=== PATIENT | male | born 1970 | race Hispanic/Latino ===

== ENCOUNTER 2018-07-09 19:08 | Emergency (ER) | payer SELFPAY ==
--- NOTE | 2018-07-09 19:35 | EDPHYS ---
Physician Documentation [facility] Name: Pramod Hess Age: 48 yrs Sex: Male : 1970 Arrival Date: 07/09/2018 Time: 19:14 Bed 25 Private MD: ED Physician Amanuel Quezada HPI: 07/09 19:27 This 48 yrs old Male presents to ER via Unassigned with complaints of Abscess kb - neck. 19:27 The patient presents with an abscess of the left base of the skull. Description: kb erythematous, swollen. Onset: The symptoms/episode began/occurred 1 week(s) ago. Possible cause(s): unknown. Associated signs and symptoms: Pertinent positives: erythema, swelling, Pertinent negatives: discharge, drainage, foreign body sensation, fever, headache, nausea, shortness of breath, vomiting. Modifying factors: the symptoms are alleviated by nothing, the symptoms are aggravated by pressure, touching. Severity of symptoms: At their worst the symptoms were mild, in the emergency department the symptoms are unchanged. The patient has not experienced similar symptoms in the past. The patient has not recently seen a physician. Pt reports he developed a lump on the back of his neck that has gotten bigger and red. Tried to pop it so it is open now, but no drainage. Denies fever. . Historical: - Allergies: 19:31 No Known Allergies; ea - Home Meds: 19:31 None [Active]; ea - PMHx: 19:31 None; ea - PSHx: 19:31 None; ea - Immunization history:: Adult Immunizations up to date. - Social history:: Smoking status: Patient uses tobacco products. - Ebola Screening: : No symptoms or risks identified at this time. ROS: 19:27 Constitutional: Negative for fever, chills, and weight loss, Cardiovascular: Negative kb for chest pain, palpitations, and edema, Respiratory: Negative for shortness of breath, cough, wheezing, and pleuritic chest pain, Abdomen/GI: Negative for abdominal pain, nausea, vomiting, diarrhea, and constipation, MS/Extremity: Negative for injury and deformity, Neuro: Negative for headache, weakness, numbness, tingling, and seizure. 19:27 Skin: Positive for abscess, erythema, swelling, of the left base of the skull. Exam: 19:27 Constitutional: This is a well developed, well nourished patient who is awake, alert, kb and in no acute distress. Head/Face: Normocephalic, atraumatic. Chest/axilla: Normal chest wall appearance and motion. Nontender with no deformity. No lesions are appreciated. Cardiovascular: Regular rate and rhythm with a normal S1 and S2. No gallops, murmurs, or rubs. Normal PMI, no JVD. No pulse deficits. Respiratory: Lungs have equal breath sounds bilaterally, clear to auscultation and percussion. No rales, rhonchi or wheezes noted. No increased work of breathing, no retractions or nasal flaring. Abdomen/GI: Soft, non-tender, with normal bowel sounds. No distension or tympany. No guarding or rebound. No evidence of tenderness throughout. MS/ Extremity: Pulses equal, no cyanosis. Neurovascular intact. Full, normal range of motion. Neuro: Awake and alert, GCS 15, oriented to person, place, time, and situation. Cranial nerves II-XII grossly intact. Motor strength 5/5 in all extremities. Sensory grossly intact. Cerebellar exam normal. Normal gait. 19:27 Skin: abscess, that is small, that is moderate sized, of the left base of the skull, with induration. Vital Signs: 19:30 BP 163 / 93; Pulse 85; Resp 18; Temp 98.3; Pulse Ox 99% on R/A; Weight 68.04 kg; Height ea 5 ft. 6 in. (167.64 cm); Pain 8/10; 19:30 Body Mass Index 24.21 (68.04 kg, 167.64 cm) ea MDM: 19:24 Patient medically screened. kb 19:27 Data interpreted: Pulse oximetry: on room air is 100 %. Interpretation: normal. kb 19:27 Data reviewed: vital signs, nurses notes. kb 19:27 Counseling: I had a detailed discussion with the patient and/or guardian regarding: the kb historical points, exam findings, and any diagnostic results supporting the discharge/admit diagnosis, the need for outpatient follow up, a family practitioner, to return to the emergency department if symptoms worsen or persist or if there are any questions or concerns that arise at home. Administered Medications: 19:45 Drug: Bactrim (160 mg-800 mg (DS) 1 tablet Route: PO; rr5 19:55 Follow up: Response: Medication administered at discharge. rr5 Disposition: 21:11 Co-signature as Attending Physician, Amanuel Quezada MD. russell Disposition: 07/09/18 19:34 Discharged to Home. Impression: Cutaneous abscess of neck. - Condition is Stable. - Discharge Instructions: Skin Abscess, [id number]. - Prescriptions for Bactrim DS 800- 160 mg Oral Tablet - take 1 tablet by ORAL route every 12 hours for 7 days; 14 tablet. - Medication Reconciliation Form, Thank You Letter, Antibiotic Education, Prescription Opioid Use form. - Follow up: Emergency Department; When: As needed; Reason: Worsening of condition. Follow up: Private Physician; When: 2 - 3 days; Reason: Recheck today's complaints, Continuance of care, Re-evaluation by your physician. Signatures: Rosa Maria Felix, MANAGER IMPLEMENTATION-C MANAGER IMPLEMENTATION-Amanuel Medley MD MD pkShalini Gracia RN RN ea Roque, Raymond RN RN rr5 Corrections: (The following items were deleted from the chart) 19:27 19:27 Data interpreted: Pulse oximetry: is 100 %. kb kb 19:56 19:34 07/09/2018 19:34 Discharged to Home. Impression: Cutaneous abscess of neck. rr5 Condition is Stable. Forms are Medication Reconciliation Form, Thank You Letter, Antibiotic Education, Prescription Opioid Use. Follow up: Emergency Department; When: As needed; Reason: Worsening of condition. Follow up: Private Physician; When: 2 - 3 days; Reason: Recheck today's complaints, Continuance of care, Re-evaluation by your physician. kb
--- NOTE | 2018-07-09 19:35 | ER ---
Nurse's Notes [facility] Name: Parmod Hess Age: 48 yrs Sex: Male : 1970 Arrival Date: 07/09/2018 Time: 19:14 Bed 25 [facility] MD: Diagnosis: Cutaneous abscess of neck Presentation: 07/09 19:29 Presenting complaint: Patient states: Patient reports pain and swelling to left side of ea the neck. Transition of care: patient was not received from another setting of care. Onset of symptoms was July 09, 2018. Risk Assessment: Do you want to hurt yourself or someone else? Patient reports no desire to harm self or others. Initial Sepsis Screen: Does the patient meet any 2 criteria? No. Patient's initial sepsis screen is negative. Does the patient have a suspected source of infection? No. Patient's initial sepsis screen is negative. Care prior to arrival: None. 19:29 Method Of Arrival: Ambulatory ea 19:29 Acuity: MARIBEL 5 ea Triage Assessment: 19:30 General: Appears in no apparent distress. comfortable, Behavior is calm, cooperative, rr5 appropriate for age. Historical: - Allergies: 19:31 No Known Allergies; ea - Home Meds: 19:31 None [Active]; ea - PMHx: 19:31 None; ea - PSHx: 19:31 None; ea - Immunization history:: Adult Immunizations up to date. - Social history:: Smoking status: Patient uses tobacco products. - Ebola Screening: : No symptoms or risks identified at this time. Screenin:30 Abuse screen: Denies threats or abuse. Nutritional screening: No deficits noted. ea Tuberculosis screening: No symptoms or risk factors identified. Fall Risk None identified. Assessment: 19:30 General: Appears in no apparent distress. comfortable, Behavior is calm, cooperative, rr5 appropriate for age. 19:30 Pain: Complains of pain in left nape area Pain does not radiate. Pain currently is 8 rr5 out of 10 on a pain scale. Quality of pain is described as aching, Pain began gradually, Is intermittent. Neuro: Level of Consciousness is awake, alert, obeys commands, Oriented to person, place, time, situation. Cardiovascular: Capillary refill < 3 seconds Patient's skin is warm and dry. Respiratory: Airway is patent Respiratory effort is even, Respiratory pattern is regular, symmetrical. GI: No signs and/or symptoms were reported involving the gastrointestinal system. : No deficits noted. EENT: No signs and/or symptoms were reported regarding the EENT system. Derm: Wound noted left nape area Wound is abscess left nape area. Musculoskeletal: Capillary refill < 3 seconds, Range of motion: intact in all extremities. 19:55 Reassessment: Patient appears in no apparent distress at this time. discharge rr5 instruction given and explained without complaints made. Vital Signs: 19:30 BP 163 / 93; Pulse 85; Resp 18; Temp 98.3; Pulse Ox 99% on R/A; Weight 68.04 kg; Height ea 5 ft. 6 in. (167.64 cm); Pain 8/10; 19:30 Body Mass Index 24.21 (68.04 kg, 167.64 cm) ea ED Course: 19:14 Patient arrived in ED. am2 19:24 Rosa Maria Felix FNP-C is [facility]. kb 19:24 Amanuel Quezada MD is Attending Physician. kb 19:30 Triage completed. ea 19:30 Patient has correct armband on for positive identification. Bed in low position. rr5 19:31 Arm band placed on right wrist. Patient placed in an exam room, on a stretcher, on ea pulse oximetry. 19:50 Chris Trujillo, ELAINE is Primary Nurse. rr5 19:55 No provider procedures requiring assistance completed. Patient did not have IV access rr5 during this emergency room visit. Administered Medications: 19:45 Drug: Bactrim (160 mg-800 mg (DS) 1 tablet Route: PO; rr5 19:55 Follow up: Response: Medication administered at discharge. rr5 Outcome: 19:34 Discharge ordered by . kb 19:55 Discharged to home ambulatory. rr5 19:55 Condition: stable 19:55 Discharge instructions given to patient, Instructed on discharge instructions, follow up and referral plans. medication usage, Demonstrated understanding of instructions, follow-up care, medications, Prescriptions given X 1. 19:55 Condition: given by sherif HNERY rr5 19:56 Patient left the ED. rr5 Signatures: Rosa Maria Feilx FNP-C FNP-Ckb Moreno, Amanda am2 Silva, Shalini, RN RN ea Trujillo, Chris, RN RN rr5
[2018-07-09] MEDS ORDERED: SMZ./TMP. 800/160 MG TABLET ONE (20:03)
== END 2018-07-09 19:56 | disposition home or self-care (01) ==
LOC: ER 19:08
DX: L02.11 Cutaneous abscess of neck (principal); Z72.0 Tobacco use
CPT/HCPCS: 99283